=== PATIENT | male | born 1965 | race Caucasian/White ===

== ENCOUNTER 2023-07-22 03:33 | Day surgery (SDC) | payer OTHER ==
[2023-07-17 18:06] VITALS: BMI 24.9
[2023-07-22] MEDS ORDERED: PROPOFOL 20 ML ONE (13:06)
[2023-07-22] MEDS ORDERED: FENTANYL CITRATE/PF 50 MCG/ML VIAL ONE ×2 (13:06→14:37)
[2023-07-22] MEDS ORDERED: ceFAZolin SODIUM 1 GM VIAL IVPB ONE (13:26)
[2023-07-22] MEDS ORDERED: oxyCODONE HCL 5 MG TABLET PO PRN (14:09)
[2023-07-22] MEDS ORDERED: LACTATED RINGERS SOLUTION 1,000 ML IV SCH (14:15)
[2023-07-22 16:10] VITALS: RESP 18
[2023-07-22 16:22] VITALS: BP 133/75; PULSE 70; TEMP 97.5
== END 2023-07-22 16:35 | disposition home or self-care (01) ==
LOC: JASU-SURG 03:33
PROVIDERS: ATTEND Urology
PROC: 0TC68ZZ Extirpation of Matter from Right Ureter, Via Natural or Artificial Opening Endoscopic (ICD-10-PCS; principal; 2023-07-22 13:00)
PROC: 0T768DZ Dilation of Right Ureter with Intraluminal Device, Via Natural or Artificial Opening Endoscopic (ICD-10-PCS; 2023-07-22 13:00)
DX: N20.1 Calculus of ureter (principal)
CPT/HCPCS: 76000-TC-FY; 94760; C1758; C2617